=== PATIENT | male | born 1955 | race Caucasian/White ===

== ENCOUNTER 2019-08-31 04:00 | Observation (INO) | payer OTHER, SELFPAY ==
[2019-08-31] VITALS (11 sets, daily range): BP systolic 119–169; BP diastolic 70–92; PULSE 62–88; RESP 14–18; TEMP 35.9–36.7; O2SAT 95–100
--- NOTE | ~2019-08-31 | CT_ITS ---
EXAMINATION: CT abdomen pelvis w con INDICATION: Left lower quadrant pain TECHNIQUE: Computed tomographic images of the abdomen and pelvis were obtained after the administrati on of 100 cc of Omnipaque 350 intravenous contrast. The dose-length product (DLP) was 1230.75 mGy-cm. Automated exposure control and iterative reconstruction technique were employed. COMPARISON: 05/28/2014 FINDINGS: Minimal dependent atelectasis is present in the lung bases. The heart size is normal. There are changes of gastric bypass surgery. Punctate calcifications in otherwise normal appearing liver a nd spleen likely represent healed granulomatous disease. The pancreas and adrenal glands are unremark able. Stones or sludge are present in the nondistended gallbladder. Cysts of the kidneys measure up t o 6.1 cm on the right. There is a 4 mm stone in the left distal ureter which causes mild left hydrour eteronephrosis. There is a moderate amount of left perinephric fat stranding. A 4 mm nonobstructing s tone is present in the lower pole of the left kidney. There is calcified atherosclerosis of the aorta and many of the other arteries. No pathologically enlarged abdominal or pelvic lymph nodes are ident ified. There is no free intraperitoneal gas or evidence of bowel obstruction. The appendix is normal. Healed pelvic fractures are noted. There are changes of left total hip arthroplasty. IMPRESSION: 1. 4 mm stone of the left distal ureter causing mild left hydroureteronephrosis. Left perinephric fat stranding could reflect superimposed pyelonephritis. 2. Nonobstructing left nephrolithiasis. 3. Stones or sludge in the nondistended gallbladder. Reviewed, dictated and finalized at location A. ING MACHINE INSTALLER IMPRESSION: 1. 4 mm stone of the left distal ureter causing mild left hydroureteronephrosis . Left perinephric fat stranding could reflect superimposed pyelonephritis. 2. Nonobstructing left nephrolithiasis. 3. Stones or sludge in the nondistended gallbladder.
--- NOTE | ~2019-08-31 | XR_ITS ---
EXAMINATION: XR retrograde pyelo w/stent LT EXAM DATE: 08/31/2019 15:03 INDICATION: Left ureteral stone extraction. TECHNIQUE: Fluoroscopy used during XR retrograde pyelo w/stent LT performed by Dr. Cynthia Cantor MD. The DAP for this procedure was 0.4 mGym2. FINDINGS: Left ureter was cannulated, injected. Unremarkable collecting system. A left double-J uret eral stent was placed. Correlate with procedure note. IMPRESSION: Fluoroscopy used during XR retrograde pyelo w/stent LT. Reviewed, dictated and finalized at location A. RVISOR ROVING DEPARTMENT
--- NOTE | ~2019-08-31 | XR_ITS ---
EXAMINATION: XR abdomen/kub 1V INDICATION: Left flank pain, left distal ureteral stone TECHNIQUE: Supine views of the abdomen were obtained on 2 radiographs. COMPARISON: CT from today FINDINGS: Contrast from earlier CT examination opacifies the bladder and obscures visualization of th e known left distal ureteral stone. There is mild left hydroureteronephrosis, consistent with known s tone. The bowel gas pattern is normal. There is a moderate volume of colonic stool. Changes of left h ip arthroplasty are noted. Healed pelvic fractures are present. IMPRESSION: 1. Known left distal ureteral stone obscured by contrast in the urinary bladder. Mild left hydrourete ronephrosis. Reviewed, dictated and finalized at location A. MUTUEL TICKET CASHIER IMPRESSION: 1. Known left distal ureteral stone obscured by contrast in the urinary bladder . Mild left hydroureteronephrosis.
--- NOTE | 2019-08-31 04:17 | ED.ABDPAIN ---
HPI - Abdominal Pain General Chief Complaint: Urogenital-Male <Drew Blackwell MD - Last Filed: 09/02/19 23:10> Stated Complaint: abd, groin, testicle pain <Drew Blackwell MD - Last Filed: 09/02/19 23:10> Time Seen by Provider: 08/31/19 04:08 <Drew Blackwell MD - Last Filed: 09/02/19 23:10> History of Present Illness HPI narrative: Severe LLQ pain radiating into his scrotum since about 2200 last night. No associated symptoms. No exacerbating or alleviating factors. He has never had this before. He reports no difficulty with urinating since the pain started. He has severe chronic pain due to a previous back injury and recently had his pain regimen changed. <Drew Blackwell MD - Last Filed: 09/02/19 23:10> Related Data Home Medications: Home Medications Medication Instructions Recorded Confirmed Adult One Daily Multivitamin 1 mg PO DAILY 08/31/19 09/02/19 Glucagon Emergency Kit (human) 1 mg SUBCUT DIRECTED PRN 08/31/19 09/02/19 Humalog Jacques KwikPen U-100 See Protocol SUBCUT DAILY 08/31/19 09/02/19 Injectafer 750 mg IV [id number] 08/31/19 09/02/19 Januvia 100 mg PO DAILY 08/31/19 09/02/19 amitriptyline 25 mg BYMOUTH HS 08/31/19 09/02/19 apixaban 5 mg PO BID 08/31/19 09/02/19 ioxmeplhup-fijmtlocnbpvh-akll 1 cap PO Q6H PRN 08/31/19 09/02/19 calcium carbonate 600 mg PO TID 08/31/19 09/02/19 celecoxib 400 mg BYMOUTH DAILY 08/31/19 09/02/19 cyanocobalamin (vitamin B-12) 1,000 mcg PO DAILY 08/31/19 09/02/19 duloxetine 30 mg PO DAILY 08/31/19 09/02/19 duloxetine 60 mg PO DAILY 08/31/19 09/02/19 empagliflozin 25 mg PO DAILY 08/31/19 09/02/19 finasteride 5 mg PO DAILY 08/31/19 09/02/19 hydroxyzine HCl 25 mg PO TID 08/31/19 09/02/19 lorazepam 0.5 mg PO DIRECTED PRN 08/31/19 09/02/19 methocarbamol 500 mg PO TID 08/31/19 09/02/19 naltrexone 4.5 mg PO TID 08/31/19 09/02/19 pregabalin 150 mg PO TID 08/31/19 09/02/19 tamsulosin 0.4 mg PO QPM 08/31/19 09/02/19 trazodone 100 mg PO HS 08/31/19 09/02/19 <Drew Blackwell MD - Last Filed: 09/02/19 23:10> Allergies/Adverse Reactions: Allergies Allergy/AdvReac Type Severity Reaction Status Date / Time metformin Allergy Nausea and Verified 08/31/19 04:23 Vomiting adhesive tape AdvReac Blister Verified 08/31/19 04:22 silicone AdvReac Blister Verified 08/31/19 04:22 <Drew Blackwell MD - Last Filed: 09/02/19 23:10> Review of Systems Review of Systems: All systems reviewed & are unremarkable except as noted in HPI and below <Drew Blackwell MD - Last Filed: 09/02/19 23:10> Constitutional: Constitutional: Denies fever(s) <Drew Blackwell MD - Last Filed: 09/02/19 23:10> Eyes: Eyes: Denies change in vision <Drew Blackwell MD - Last Filed: 09/02/19 23:10> Cardiovascular: Cardiovascular: Denies chest pain <Drew Blackwell MD - Last Filed: 09/02/19 23:10> Respiratory: Respiratory: Denies dyspnea <Drew Blacwkell MD - Last Filed: 09/02/19 23:10> Gastrointestinal: Gastrointestinal: Reports abdominal pain, Denies diarrhea and Denies vomiting <Drew Blackwell MD - Last Filed: 09/02/19 23:10> Genitourinary: Genitourinary: Denies hematuria, Denies dysuria, Reports testicular pain and Denies urinary frequency <rDew Blackwell MD - Last Filed: 09/02/19 23:10> Musculoskeletal: Musculoskeletal: Reports back pain <Drew Blackwell MD - Last Filed: 09/02/19 23:10> Neurologic: Denies focal weakness <Drew Blackwell MD - Last Filed: 09/02/19 23:10> [facility] Past Medical History Medical History: Medical History (Updated 09/02/19 @ 23:07 by Brittany Sears, DO) Anxiety Chronic pain syndrome Depression Diabetes type 2, controlled On oral medications and sliding scale insulin DVT (deep venous thrombosis) Following major trauma and associated surgeries in 2013 and 2014 on chronic anticoagulation with Eliquis as a ?preventative? measure Essential hypertension No longer on antihyp
[2019-08-31] MEDS: SODIUM CHLORIDE 0.9% IV 1,000 ML 999 ML IV CONT (04:40)
[2019-08-31] MEDS: MORPHINE SULFATE 4 MG/ML INJ IV PUSH ×2 (04:40→05:00)
[2019-08-31 04:55] LABS: Basophils Percent Auto 0.3 % (0.2-1.2); Eosinophils Absolute Auto 0.1 K/mm3 (0-0.3); Eosinophils Percent Auto 0.4 % (0-4.4); Hematocrit 45.9 % (42.0-52.0); Hemoglobin 15.4 g/dL (14.0-18.0); Immature Granulocyte Absolute 0.03 K/mm3 (0.00-0.031); Immature Granulocyte Percent A 0.2 % (0-0.5); Lymphocytes Absolute Auto 1.63 K/mm3 (0.9-3.2); Lymphocytes Percent Auto 13.3 % (18.3-44.2); Mean Corpuscular HGB Conc 33.6 g/dl (32-36); Mean Corpuscular Hemoglobin 32.4 pg (26-34); Mean Corpuscular Volume 96.6 fl (80-100); Mean Platelet Volume 10.4 fl (7.4-10.4); Monocytes Absolute Auto 0.9 K/mm3 (0.1-0.6); Monocytes Percent Auto 7.5 % (2.6-8.5); Neutrophils Absolute Auto 9.6 K/mm3 (1.3-6.7); Neutrophils Percent Auto 78.3 % (45.5-73.1); Platelet Count Result 179 k/mm3 (150-375); Red Blood Count 4.75 M/mm3 (4.6-6.20); Red Cell Distribution Width 11.8 % (11.5-14.5); White Blood Count 12.3 K/mm3 (4.5-10.0)
[2019-08-31 05:16] LABS: Alanine Aminotransferase 34 U/L (4-50); Albumin Level 4.4 g/dL (3.5-5.1); Alkaline Phosphatase 111 U/L (38-126); Aspartate Amino Transferase 34 U/L (17-59); Bilirubin,Total 0.4 mg/dL (0.2-1.3); Blood Urea Nitrogen 17 mg/dL (9-20); Calcium 9.4 mg/dL (8.4-10.2); Carbon Dioxide 24 mmol/L (22-30); Chloride 100 mmol/L (98-107); Estimated CRCL calculation 88 ml/min; Estimated Glomerular Filt Rate > 60; Glucose 187 mg/dL (75-110); Lipase 110 U/L (23-300); Potassium 4.6 mmol/L (3.4-5.0); Sodium 135 mmol/L (137-145)
[2019-08-31] MEDS: KETOROLAC 30 MG/ML VIAL (*BKC) IV PUSH (05:52)
[2019-08-31 06:30] LABS: Blood Urea Nitrogen 22 mg/dL (8-26); Estimated CRCL calculation 80 ml/min; Estimated Glomerular Filt Rate > 60
[2019-08-31 07:07] LABS: Add Urine Microscopic? YES; Appearance Urine Clear (Clear); Bilirubin Urine Negative (Negative); Blood Urine 1+ (Negative); Color Urine Straw (Yellow); Glucose Urine UA 3+ mg/dL (Negative); Ketones Urine Negative (Negative); Leukocyte Esterase Ur Negative LEU/UL (Negative); Nitrate Urine Negative (Negative); Protein Urine Negative (Negative); Specific Grav Ur 1.022 (1.001-1.035); Urobilinogen Urine Negative mg/dL (<2.0); WBC Urine 0-3 /hpf
[2019-08-31] MEDS: HYDROMORPHONE HCL 1 MG/ML INJ 0.5 MG IV PUSH (10:00)
--- NOTE | 2019-08-31 10:17 | ADMGEN ---
This patient, Karlos Mohamud, was admitted to [facility] Surg Room 320-01. Patient/family oriented to hospital policies and general routines including ID bracelet, bed and alarms, visiting hours, pain management, procedures, bathroom and other care routines, personal items, smoking policy, room service/diet, and visiting hours. Valuables list has been completed. Information on how to activate the Rapid Response Team has been discussed. Patient/Family are encouraged to report perceived risks to care and to ask questions if they do not understand what they are told or what they should do.
[2019-08-31] MEDS: SODIUM CHLORIDE 0.9% IV 1,000 ML 125 ML IV CONT (12:21)
--- NOTE | 2019-08-31 12:46 | WPDURCON ---
Assessment and Plan Assessment and plan (1) Kidney stone: Code(s): N20.0 - Calculus of kidney Status: Acute Assessment and Plan: Will monitor yearly as an oupatient, no intervention at this time. (2) Ureteral stone: Code(s): N20.1 - Calculus of ureter Status: Acute Assessment and Plan: Keep NPO Plan to go to the OR this afternoon: Cystoscopy, left ureteroscopy with stone extraction, possible left stent placement, possible holmium laser, left retrograde pyelogram. Obtain consent. Will plan to discharge home afterward. Urology Consult Note HPI Date Seen: 08/31/19 Requesting Physician: Cynthia Cantor MD Primary Care Provider: UNKNOWN,DOCTOR Consult Narrative Reason for consult: Left distal uretral stone Narrative: Karlos Mohamud is a 63 year old male who presented to the ER early this morning for worsening left lower quadrant pain that was radiating into his left hemiscrotum. This was also accompanied by nausea and vomiting. He denies dysuria, hematuria, fever, chills or flank pain. The pain and vomiting started at 10pm last night. He has no history of kidney stones prior to this one. His CT scan confirms a 4mm left distal ureteral stone as well as a left non obstructive kidney stone. KUB does not visualize the left kidney stone. WBC is slightly elevated at 12,000, creatinine is stable at 1.00, he is afebrile and UA is negative other than some microhematuria. Review of Systems Cardiovascular: Cardiovascular: Denies chest pain Respiratory: Respiratory: Reports no additional respiratory complaints Gastrointestinal: Gastrointestinal: Reports abdominal pain Genitourinary: Genitourinary: Denies hematuria, Denies flank pain, Reports testicular pain and Denies urinary urgency [facility] Past Medical History Medical History Anxiety Chronic back pain Chronic pain Depression Diabetes type 2, controlled DVT (deep venous thrombosis) Fibromyalgia Hyperlipidemia Migraine Osteoarthritis Surgical History Surgical History Hx of spinal fusion Family History Family History Grandparent Diabetes mellitus Sibling Thyroid disease Social History Social History Smoking status: Former smoker Tobacco type: cigarettes Second hand tobacco smoke exposure: Yes Smoking end date: 08/24/83 Alcohol intake: never Substance use: never Substance use type: does not use Gender identity (if verbalized by the patient): Male Spiritual care concerns: No Agree to blood products: Yes Meds Home Medications and Allergies Home Medications Medication Instructions Recorded Confirmed Type amitriptyline 25 mg BYMOUTH HS 08/31/19 08/31/19 History apixaban 5 mg PO BID 08/31/19 08/31/19 History fyazwwsijh-ukadigkyfwgie-akgd 1 cap PO Q6H PRN 08/31/19 08/31/19 History calcium carbonate 600 mg PO TID 08/31/19 08/31/19 History celecoxib 400 mg BYMOUTH DAILY 08/31/19 08/31/19 History cyanocobalamin (vitamin B-12) 1,000 mcg PO DAILY 08/31/19 08/31/19 History duloxetine 30 mg PO DAILY 08/31/19 08/31/19 History duloxetine 60 mg PO DAILY 08/31/19 08/31/19 History empagliflozin 25 mg PO DAILY 08/31/19 08/31/19 History ferric carboxymaltose [Injectafer] 750 mg IV TID PRN 08/31/19 08/31/19 History finasteride 5 mg PO DAILY 08/31/19 08/31/19 History glucagon (human recombinant) 1 mg SUBCUT DIRECTED PRN 08/31/19 08/31/19 History [Glucagon Emergency Kit (human)] hydroxyzine HCl 25 mg PO TID 08/31/19 08/31/19 History insulin lispro [Humalog Jacques 30 unit SUBCUT DAILY 08/31/19 08/31/19 History KwikPen U-100] lorazepam 0.5 mg PO DIRECTED PRN 08/31/19 08/31/19 History methocarbamol 500 mg PO TID 08/31/19 08/31/19 History multivit with min-folic acid 1 mg PO DAILY 08/31/19 01
[2019-08-31 12:59] LABS: Glucose Point of Care 132 (65-105)
--- NOTE | 2019-08-31 13:51 | WPDANESEPPF ---
Anes - Initial Pre Proc Eval Procedure: Operation Date: 08/31/19 14:15 Proposed Procedures p Cystoscopy, Left Retrograde Pyelogram, Left Ureteroscopy, Left Stone Extraction, possible Left Stent Placement,(Left) - Cynthia Cantor MD s possible Holmium Laser Procedure - Cynthia Cantor MD Date/Time: 08/31/19 13:51 Surgeon: Cynthia Cantro MD Pre Op Diagnosis: left ureterolithiasis Patient Data Age: 63 Gender: M Height: 1.91 m Weight: 102 kg Last Vital Signs Temp 36.7 C 08/31/19 10:20 Pulse 62 08/31/19 10:20 Resp 16 08/31/19 10:20 BP 143/84 H 08/31/19 10:20 Pulse Ox 95 08/31/19 10:20 Allergies Allergy/AdvReac Type Severity Reaction Status Date / Time metformin Allergy Nausea and Verified 08/31/19 04:23 Vomiting adhesive tape AdvReac Blister Verified 08/31/19 04:22 silicone AdvReac Blister Verified 08/31/19 04:22 Home Medications Medication Instructions Recorded Confirmed Type amitriptyline 25 mg BYMOUTH HS 08/31/19 08/31/19 History apixaban 5 mg PO BID 08/31/19 08/31/19 History ksxwrwudug-drmsxavgwgfep-pbus 1 cap PO Q6H PRN 08/31/19 08/31/19 History calcium carbonate 600 mg PO TID 08/31/19 08/31/19 History celecoxib 400 mg BYMOUTH DAILY 08/31/19 08/31/19 History cyanocobalamin (vitamin B-12) 1,000 mcg PO DAILY 08/31/19 08/31/19 History duloxetine 30 mg PO DAILY 08/31/19 08/31/19 History duloxetine 60 mg PO DAILY 08/31/19 08/31/19 History empagliflozin 25 mg PO DAILY 08/31/19 08/31/19 History ferric carboxymaltose [Injectafer] 750 mg IV TID PRN 08/31/19 08/31/19 History finasteride 5 mg PO DAILY 08/31/19 08/31/19 History glucagon (human recombinant) 1 mg SUBCUT DIRECTED PRN 08/31/19 08/31/19 History [Glucagon Emergency Kit (human)] hydrocodone-acetaminophen 1 tablet PO Q4H PRN 5 Days #20 08/31/19 Rx tablet hydroxyzine HCl 25 mg PO TID 08/31/19 08/31/19 History insulin lispro [Humalog Jacques 30 unit SUBCUT DAILY 08/31/19 08/31/19 History KwikPen U-100] lorazepam 0.5 mg PO DIRECTED PRN 08/31/19 08/31/19 History methocarbamol 500 mg PO TID 08/31/19 08/31/19 History multivit with min-folic acid 1 mg PO DAILY 08/31/19 08/31/19 History [Adult One Daily Multivitamin] naltrexone 4.5 mg PO TID 08/31/19 08/31/19 History pregabalin 150 mg PO TID 08/31/19 08/31/19 History sitagliptin [Januvia] 100 mg PO DAILY 08/31/19 08/31/19 History tamsulosin 0.4 mg PO QPM 08/31/19 08/31/19 History trazodone 100 mg PO HS 08/31/19 08/31/19 History Laboratory Tests 08/31/19 08/31/19 08/31/19 04:37 04:38 05:15 WBC 12.3 K/mm3 H K/mm3 (4.5-10.0) RBC 4.75 M/mm3 M/mm3 (4.6-6.20) Hgb 15.4 g/dL g/dL (14.0-18.0) Hct 45.9 % % (42.0-52.0) MCV 96.6 fl fl (80-100) MCH 32.4 pg pg (26-34) MCHC 33.6 g/dl g/dl (32-36) RDW 11.8 % % (11.5-14.5) Plt Count 179 k/mm3 k/mm3 (150-375) MPV 10.4 fl fl (7.4-10.4) Immature Gran % (Auto) 0.2 % % (0-0.5) Neut % (Auto) 78.3 % H % (45.5-73.1) Lymph % (Auto) 13.3 % L % (18.3-44.2) [place] % (Auto) 7.5 % % (2.6-8.5) Eos % (Auto) 0.4 % % (0-4.4) Baso % (Auto) 0.3 % % (0.2-1.2) Lymph # (Auto) 1.63 K/mm3 K/mm3 (0.9-3.2) [place] # (Auto) 0.9 K/mm3 H K/mm3 (0.1-0.6) Eos # (Auto) 0.1 K/mm3 K/mm3 (0-0.3) Baso # (Auto) 0.0 K/mm3 K/mm3 (0.0-0.1) Abs Immat Gran (auto) 0.03 K/mm3 K/mm3 (0.00-0.031) Absolute Neuts (auto) 9.6 K/mm3 H K/mm3 (1.3-6.7) Absolute Nucleated RBC 0.0 K/mm3 K/mm3 (0.0-0.012) Nucleated RBC % 0.0 % % (0.0-0.2) Sodium 135 mmol/L L mmol/L (137-145) Potassium 4.6 mmol/L mmol/L (3.4-5.0) Chloride 100 mmol/L mmol/L (98-107) Carbon Dioxide 24 mmol/L mmol/L (22-30) BUN 17 mg/dL mg/dL 22 mg/dL mg/dL (9-20) (8-26) Creatinine 0.
[2019-08-31] MEDS: LACTATED RINGERS 1,000 ML 30 ML IV CONT (13:56)
[2019-08-31] MEDS: LIDOCAINE HCL 2% GEL UROJET 10 ML PKG MUCOUS MEM (14:50)
--- NOTE | 2019-08-31 15:12 | SUR.OPER ---
Patient recieved 2g of Anc by Alycia Lloyd CRNA at 1620
--- NOTE | 2019-08-31 19:01 | OP_ITS ---
DATE OF PROCEDURE: 08/31/2019 PREOPERATIVE DIAGNOSIS: Left nephrolithiasis. POSTOPERATIVE DIAGNOSIS: Left nephrolithiasis. PROCEDURE PERFORMED: 1. Cystoscopy. 2. Left ureteroscopy. 3. Laser lithotripsy. 4. Stone extraction. 5. Retrograde pyelogram. 6. Stent insertion. DESCRIPTION OF PROCEDURE: Informed consent was obtained. The patient was taken to the operating room and given preoperative IV antibiotics. He was induced anesthesia and placed in dorsal lithotomy position, prepped and draped in normal sterile fashion. We inserted a 22-Macedonian cystoscope through the urethra in the bladder. The patient had odrd-an-poywvkty bilobar prostatic hyperplasia. Inspection of bladder revealed it to be trabeculated, had bilaterally orthotopic ureteral orifices. There were no masses. We then cannulated the left ureteral orifice with the wire, we were able to advance a wire past the level of the stone, which showed there was obstruction of approximately 2 cm proximal to the ureterovesical junction. The patient did have hydroureteronephrosis down to the level of the stone. We were then able to dilate the distal ureter with an 8/10 coaxial dilator. We then advanced the semirigid ureteroscope into the distal ureter. We identified the stone approximately 5 cm in size. It was grasped with a basket; however, it was too large to be removed. We therefore lasered the stone into 3 smaller fragments, these were grasped and removed and sent as specimen. We then inspected the distal half of the ureter with the semi-rigid ureteroscope. There were no residual stones. On the patient's CT scan, he did have an additional stone in the left kidney. We therefore switched to the flexible ureteroscope. The flexible ureteroscope was advanced into the kidney.Retrograde pyelogram was performed, we then under fluoroscopic guidance, inspected each calyx. There was a 4 mm stone noted as well as punctate non-retrievable stones. The 4 mm stone was grasped with a Zero tip basket, it was then removed. At this point, all significant stones were removed. We therefore placed a 4.8-Macedonian variable length stent with a curl in the renal pelvis and curl in the bladder. The bladder was emptied. 10 mL of lidocaine was instilled. The patient was awakened and taken to the recovery room in stable condition. FLUIDS: Per Anesthesia. COMPLICATIONS: None. ESTIMATED BLOOD LOSS: Minimal. FOLLOWUP: The patient will follow up in the office in 1 week for ureteral stent removal. D I MT: Gilson JAMES
--- NOTE | 2019-09-01 08:27 | PCCCNOTE ---
Faxed DC summary to [facility] at [phone] on 09/01/2018 at [phone]
--- NOTE | 2019-09-22 01:51 | DS_ITS ---
DATE OF DISCHARGE: 08/31/2019 PREOPERATIVE DIAGNOSIS: Left nephrolithiasis. POSTOPERATIVE DIAGNOSIS: Left nephrolithiasis. PROCEDURES PERFORMED: Cystoscopy, left ureteroscopy, laser lithotripsy, stone extraction, retrograde pyelogram, stent insertion in the left ureter done by Dr. Cynthia Cantor on August 31, 2019. HOSPITAL COURSE: The patient tolerated the procedure well, was then transferred to the recovery in stable condition and to the floor for further observation. The patient was okay to be discharged home the same day on August [address] Cynthia Cantor. He was to return home. Resume his diet as tolerated. He was to resume all home medications taking previously including Colace, hydrocodone with acetaminophen, and oxybutynin as needed. The patient was to follow up 1 week later for stent removal in the office. Manuel I MT: Gilson
== END 2019-08-31 17:57 | disposition home or self-care (01) ==
LOC: ANHED 09:52 → ANH3MEDSUR 10:07
PROVIDERS: Admitting Provider Urology; Emergency Provider Emergency Medicine; Visit Provider Urology
PROC: (CPT 52352; principal; 2019-08-31 14:15)
PROC: (CPT 52356; 2019-08-31 14:15)
DX: N13.2 Hydronephrosis with renal and ureteral calculous obstruction (principal); N40.0 Benign prostatic hyperplasia without lower urinary tract symptoms; N32.89 Other specified disorders of bladder; E11.42 Type 2 diabetes mellitus with diabetic polyneuropathy; E78.5 Hyperlipidemia, unspecified; Z79.4 Long term (current) use of insulin; Z87.891 Personal history of nicotine dependence
CPT/HCPCS: 52356; 36415; 51701; 74018; 74177; 74420; 80053; 81001; 82365; 83690; 85025; 88300; 96361; 96374; 96375; 96376; 99285; A9270; C1887; C2617; G0378; G0379; J0690; J1170; J1885; J2250; J2270; J2405; J2704; J3010; J7030; J7120; Q9966; Q9967

== ENCOUNTER 2019-09-27 13:31 | Outpatient (CLI) | payer OTHER, SELFPAY ==
[2019-09-27 15:16] LABS: Hematocrit 45.8 % (42.0-52.0); Mean Corpuscular HGB Conc 32.8 g/dl (32-36); Mean Corpuscular Volume 97.7 fl (80-100); Mean Platelet Volume 10.1 fl (7.4-10.4); Platelet Count Result 175 k/mm3 (150-375); Red Blood Count 4.69 M/mm3 (4.6-6.20); Red Cell Distribution Width 12.2 % (11.5-14.5); White Blood Count 5.9 K/mm3 (4.5-10.0)
[2019-09-27 15:22] LABS: Blood Urea Nitrogen 8 mg/dL (9-20); Calcium 9.3 mg/dL (8.4-10.2); Carbon Dioxide 32 mmol/L (22-30); Chloride 99 mmol/L (98-107); Estimated Glomerular Filt Rate > 60; Glucose 138 mg/dL (75-110); Potassium 4.9 mmol/L (3.4-5.0); Sodium 140 mmol/L (137-145)
== END 2019-09-27 13:32 | disposition home or self-care (01) ==
PROVIDERS: Visit Provider Hospitalist
DX: E11.9 Type 2 diabetes mellitus without complications (principal); N20.0 Calculus of kidney
CPT/HCPCS: 36415; 80048; 85027

== ENCOUNTER 2019-10-04 10:19 | Outpatient (CLI) | payer OTHER, SELFPAY ==
--- NOTE | ~2019-10-04 | XR_ITS ---
EXAMINATION: XR abdomen/kub 1V EXAM DATE: 10/04/2019 10:36 INDICATION: Left ureteral stone. TECHNIQUE: Frontal projection(s) of the abdomen for interpretation. Comparison is made to prior exami nation from 08/31/2019. FINDINGS: There is expected amount of colonic stool and gas. No small bowel dilation, nonobstructiv e bowel gas pattern. There are no suspicious calcifications identified. There is no organomegaly suspected. The bones are unremarkable. Left hip replacement. Inguinal surgical clips. IMPRESSION: Unremarkable abdomen x-ray exam. Reviewed, dictated and finalized at location B. DINE RECOVERY OPERATOR
== END 2019-10-04 10:20 | disposition home or self-care (01) ==
LOC: ANHIMG 10:26
PROVIDERS: Visit Provider Urology
DX: N20.1 Calculus of ureter (principal)
CPT/HCPCS: 74018

== ENCOUNTER 2019-10-21 20:24 | Emergency (ER) | payer OTHER, SELFPAY ==
--- NOTE | ~2019-10-21 | CT_ITS ---
EXAMINATION: CT brain wo con DATE: 10/21/2019 20:50 INDICATION: Fall on chronic anticoagulation. TECHNIQUE: Computed tomography (CT) of the head was performed without intravenous contrast. Sagittal and coronal reconstructions were performed. The mA was adjusted according to patient size. Iterative reconstruction technique was employed. The dose-length product was 605.33 mGy-cm. COMPARISON: head CT dated 09/02/2019 FINDINGS: No fracture. No acute intracranial hemorrhage, acute infarction or abnormal extra axial fluid collect ion. Ventricles are normal and symmetric. No mass/mass effect. Opacification of the left sphenoid sin us with central calcification and peripheral thickened sclerotic [place] consistent with likely chronic fungal sinusitis. The orbits and mastoid air cells are normal. Intracranial calcified cerebral ather osclerosis is noted. IMPRESSION: 1. No fracture or acute intracranial process. 2. 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 Reviewed, dictated and finalized at location A. ICAL CARE PHYSICIAN
--- NOTE | ~2019-10-21 | XR_ITS ---
EXAMINATION: [id number]_CR DATE: 10/21/2019 21:01 INDICATION: Anterior right upper rib pain post fall TECHNIQUE: PA view of the chest and 3 views of the right ribs were obtained. COMPARISON: Chest radiograph dated 04/28/15 FINDINGS: Seen are several old rib fractures at the anterior right second, sixth and seventh right ribs. No acu te rib fractures identified. Plate and screw fixation along the cephalad aspect of the right clavicle , likely for old healed fracture with no residual deformity. The visualized plate and screw fixation for anterior spinal fusion in the mid to lower cervical spine. Streaky opacities at the left lung bas e and favor atelectasis over pneumonia. Right lung is clear. No pulmonary edema, pleural effusion or pneumothorax. Cardiac mediastinal silhouette is normal. Tortuous and atherosclerotic thoracic aorta. IMPRESSION: 1. No acute rib fractures. 2. Mild left basilar atelectasis. No other acute cardiopulmonary disease. Reviewed, dictated and finalized at location A. ENFORCEMENT INSTRUCTOR
--- NOTE | ~2019-10-21 | XR_ITS ---
EXAMINATION: XR knee RT min 4V DATE: 10/21/2019 21:00 INDICATION: Anterior right knee pain and abrasion post fall TECHNIQUE: Anteroposterior, 2 oblique and crosstable lateral views of the right knee were obtained COMPARISON: None. FINDINGS: Alignment is normal. No fracture. No joint effusion/layering lipohemarthrosis. Mild superficial infr apatellar soft tissue swelling. No radiopaque foreign bodies. IMPRESSION: 1. No right knee joint effusion or osseous abnormality. Reviewed, dictated and finalized at location A. LLENCE SPECIALIST
[2019-10-21 20:25] VITALS: BP 127/80; PULSE 72; RESP 16; TEMP 36.3; O2SAT 100
--- NOTE | 2019-10-21 20:39 | ED.FALL ---
HPI - Fall General Chief Complaint: Fall Stated Complaint: fall Time Seen by Provider: 10/21/19 20:35 Source: patient Mode of arrival: ambulatory Limitations: no limitations History of Present Illness HPI Narrative: The pt is a 63 y/o male who presents to the ED with c/o a recent fall that occurred today around 16:30. The pt states that he was walking on asphalt when his foot slipped, causing him to fall. The pt landed on his rt knee and chest but did not hit his head. He reports rt knee pain and rt rib cage pain, but denies ABD pain or LOC. The pt is on Eliquis and ASA 81 mg. He has a PMHx of DVT, [place], and kidney stones. His Tetanus shot is up to date and he is currently on Tramadol and Baclofen. complaint: fall Onset (ago): hour(s) (today around 16:30) Fall from: standing Loss of consciousness: none Location of injury: other (rt knee, rt rib cage) Associated symptoms (after fall): other (rt knee pain, rt rib cage pain) Related Data Home Medications Medication Instructions Recorded Confirmed Adult One Daily Multivitamin 1 mg PO DAILY 08/31/19 09/02/19 Glucagon Emergency Kit (human) 1 mg SUBCUT DIRECTED PRN 08/31/19 09/02/19 Humalog Jacques KwikPen U-100 See Protocol SUBCUT DAILY 08/31/19 09/02/19 Injectafer 750 mg IV [id number] 08/31/19 09/02/19 Januvia 100 mg PO DAILY 08/31/19 09/02/19 amitriptyline 25 mg BYMOUTH 08/31/19 09/02/19 spzmqeuowp-usdosolnmfzxf-wcfm 1 cap PO Q6H PRN 08/31/19 09/02/19 calcium carbonate 600 mg PO TID 08/31/19 09/02/19 cyanocobalamin (vitamin B-12) 1,000 mcg PO DAILY 08/31/19 09/02/19 duloxetine 30 mg PO DAILY 08/31/19 09/02/19 duloxetine 60 mg PO DAILY 08/31/19 09/02/19 empagliflozin 25 mg PO DAILY 08/31/19 09/02/19 finasteride 5 mg PO DAILY 08/31/19 09/02/19 hydroxyzine HCl 25 mg PO TID 08/31/19 09/02/19 lorazepam 0.5 mg PO DIRECTED PRN 08/31/19 09/02/19 methocarbamol 500 mg PO TID 08/31/19 09/02/19 naltrexone 4.5 mg PO TID 08/31/19 09/02/19 pregabalin 150 mg PO TID 08/31/19 09/02/19 tamsulosin 0.4 mg PO QPM 08/31/19 09/02/19 trazodone 100 mg PO HS 08/31/19 09/02/19 baclofen 10 mg PO TID 09/05/19 09/05/19 tramadol 100 mg PO Q6H 09/05/19 09/05/19 Allergies Allergy/AdvReac Type Severity Reaction Status Date / Time metformin Allergy Nausea and Verified 09/08/19 12:53 Vomiting adhesive tape AdvReac Blister Verified 09/08/19 12:53 silicone AdvReac Blister Verified 09/08/19 12:53 Review of Systems Review of Systems: All systems reviewed & are unremarkable except as noted in HPI and below Gastrointestinal: Gastrointestinal: Denies abdominal pain Musculoskeletal: Musculoskeletal: Reports other (rt knee pain, rt rib cage pain) Neurologic: Denies syncope PMFSH Past Medical History Medical History Anxiety Chronic pain syndrome Depression Diabetes type 2, controlled On oral medications and sliding scale insulin DVT (deep venous thrombosis) Following major trauma and associated surgeries in 2013 and 2014 on chronic anticoagulation with Eliquis as a ?preventative? measure Essential hypertension No longer on antihypertensives since weight loss surgery Fibromyalgia Hyperlipidemia Kidney stone Migraine Myocardial infarction Obstructive sleep apnea Resolved after gastric bypass in 2011 Osteoarthritis Peripheral neuropathy Surgical History Surgical History Fracture closed, clavicle, shaft Right ORIF of clavicle fracture following trauma after falling off a horse and 2013 H/O cervical spine surgery Approximately June 2019 at [place] H/O hernia repair History of extraction of renal calculus August 31, [address] Maria with lithotripsy and stent placement History of gastric bypass 2011 the [facility] weight pre surgery was 300 lb, history of obstructive sleep apnea that is now resolved after weight loss History of left hip replacement 2006 Multiple pelvic f
== END 2019-10-21 21:40 | disposition home or self-care (01) ==
PROVIDERS: Emergency Provider Emergency Medicine
DX: S20.211A Contusion of right front wall of thorax, initial encounter (principal); S80.01XA Contusion of right knee, initial encounter; S80.211A Abrasion, right knee, initial encounter; E11.42 Type 2 diabetes mellitus with diabetic polyneuropathy; Z79.84 Long term (current) use of oral hypoglycemic drugs; F41.9 Anxiety disorder, unspecified; F32.9 Major depressive disorder, single episode, unspecified; Z86.718 Personal history of other venous thrombosis and embolism; Z79.01 Long term (current) use of anticoagulants; M79.7 Fibromyalgia; E78.5 Hyperlipidemia, unspecified; I25.2 Old myocardial infarction; G47.33 Obstructive sleep apnea (adult) (pediatric); Z96.642 Presence of left artificial hip joint; Z98.84 Bariatric surgery status; Z87.442 Personal history of urinary calculi; Z87.891 Personal history of nicotine dependence; W01.0XXA Fall on same level from slipping, tripping and stumbling without subsequent striking against object, initial encounter
CPT/HCPCS: 70450; 71101; 73564; 99284

== ENCOUNTER 2021-06-29 17:56 | Observation (INO) | payer MEDICARE, OTHER, SELFPAY ==
[2021-06-29] VITALS (7 sets, daily range): BP systolic 116–133; BP diastolic 65–80; PULSE 80–82; RESP 16–18; TEMP 35.8–36.7; O2SAT 91–100; BMI 24.8
--- NOTE | ~2021-06-29 | XR_ITS ---
XR hip LT 2V w AP pelvis DATE: 06/29/2021 18:37 INDICATION: Fall. Left hip pain and limited range of motion. Unable to bear weight. TECHNIQUE: AP pelvis. AP and lateral views of left hip COMPARISON: 05/09/2015 AP pelvis and bilateral hips FINDINGS: There is a likely acute linear nondisplaced fracture of the intertrochanteric area of the l eft proximal femur. Status post left total hip arthroplasty. Bilateral old healed hip fractures. No recent pelvic fracture is detected. The pubic symphysis and sacroiliac joints are intact. IMPRESSION: Probable acute linear intertrochanteric nondisplaced fracture of proximal left femur Left total hip arthroplasty Old healed bilateral pelvic fractures. Reviewed, dictated and finalized at location A. IMPRESSION: Probable acute linear intertrochanteric nondisplaced fracture of pr oximal left femur Left total hip arthroplasty Old healed bilateral pelvic fractures.
--- NOTE | ~2021-06-29 | CT_ITS ---
EXAMINATION: CT brain wo con DATE: 06/29/2021 19:27 INDICATION: Fall. Head injury. TECHNIQUE: Computed tomography (CT) of the head was performed without intravenous contrast. The mA wa s adjusted according to patient size. Iterative reconstruction technique was employed. Exam dose: 60 5.33 mGy-cm total exam DLP. COMPARISON: 10/21/2019 CT brain FINDINGS: Vertebral, basilar and bilateral carotid siphon and supraclinoid internal carotid artery ca lcifications. There is nonspecific diminished attenuation of cerebral white matter, which may be due to chronic sma ll vessel ischemic changes. Normal ventricular size. No intracranial mass lesion or hemorrhage or cerebrovascular accident is detected. No midline shift o r mass effect. No subdural or epidural hematoma. No fracture or bone destruction of the cranial vault There is complete opacification of the left sphenoid sinus with some calcification of the contents. W ith thickening of the wall of the left sphenoid sinus indicating chronicity. The paranasal sinuses an d mastoid air cells are otherwise normally developed and aerated. IMPRESSION: Cerebral atherosclerosis and chronic small vessel ischemic changes of the cerebral white matter Chronic opacification of left sphenoid sinus No skull fracture or acute intracranial finding Reviewed, dictated and finalized at Location A. Reviewed, dictated and finalized at location A.
--- NOTE | ~2021-06-29 | XR_ITS ---
XR chest 1V portable DATE: 06/29/2021 19:03 INDICATION: Dizziness. Fall. Hand surgery yesterday. History of myocardial infarction. TECHNIQUE: Portable AP views on 06/29/2021 at 1857 hours COMPARISON: 04/28/2015 PA and lateral chest FINDINGS: Normal heart size. Aortic arch calcification and minimal aortic tortuosity. No hilar or med iastinal enlargement. No pulmonary infiltrate or consolidation. There is minimal discoid atelectasis or scarring at the lef t lung base. No pleural effusion or pulmonary vascular congestion or pneumothorax. Status post lower anterior cervical spine surgical fusion. Diffuse osteopenia. IMPRESSION: Minimal discoid atelectasis or scarring at the left lung base; otherwise no active cardia c pulmonary disease Reviewed, dictated and finalized at location A. IMPRESSION: Minimal discoid atelectasis or scarring at the left lung base; othe rwise no active cardiac pulmonary disease
--- NOTE | 2021-06-29 18:47 | ECG_ITS ---
Measurements Intervals [place] Rate: 78 P: 66 AR: 188 QRS: -13 QRSD: 88 T: 35 QT: 372 QTc: 424 Interpretive Statements SINUS RHYTHM LOW QRS VOLTAGE IN PRECORDIAL LEADS BORDERLINE R WAVE PROGRESSION, ANTERIOR LEADS INFERIOR INFARCT, AGE INDETERMINATE ABNORMAL ECG Electronically Signed On 06-29-2021 20:05:12 CDT by Daryl Hrenandez D.O.
--- NOTE | 2021-06-29 19:11 | ED.FALL ---
HPI - Fall General Chief Complaint: Fall Stated Complaint: fall, hip pain Time Seen by Provider: 06/29/21 19:06 Source: RN notes reviewed History of Present Illness HPI Narrative: Patient presents emergency department from home for left hip pain. Patient states that he was at home today and he was trying to lift his [place] dog he states he is he is lifting her he began to get a slightly dizzy and the rug from under him slipped out from under him causing him to fall back and struck his exercise bike and then fall to the ground since that time he had pain in his left hip and has been unable to place any pressure on his left hip states he did strike his head but denies any loss of consciousness states he is on apixaban. He denies any dizziness at this time denies any chest pain or shortness of breath Related Data Home Medications Medication Instructions Recorded Confirmed Adult One Daily Multivitamin 1 mg PO DAILY 08/31/19 09/02/19 Glucagon Emergency Kit (human) 1 mg SUBCUT DIRECTED PRN 08/31/19 09/02/19 Humalog Jacques KwrossiPen U-100 See Protocol SUBCUT DAILY 08/31/19 09/02/19 Injectafer 750 mg IV [id number] 08/31/19 09/02/19 Januvia 100 mg PO DAILY 08/31/19 09/02/19 amitriptyline 25 mg BYMOUTH HS 08/31/19 09/02/19 ocjuzanwoa-ggprtmpymmigs-wxsb 1 cap PO Q6H PRN 08/31/19 09/02/19 calcium carbonate 600 mg PO TID 08/31/19 09/02/19 cyanocobalamin (vitamin B-12) 1,000 mcg PO DAILY 08/31/19 09/02/19 duloxetine 30 mg PO DAILY 08/31/19 09/02/19 duloxetine 60 mg PO DAILY 08/31/19 09/02/19 empagliflozin 25 mg PO DAILY 08/31/19 09/02/19 finasteride 5 mg PO DAILY 08/31/19 09/02/19 hydroxyzine HCl 25 mg PO TID 08/31/19 09/02/19 lorazepam 0.5 mg PO DIRECTED PRN 08/31/19 09/02/19 methocarbamol 500 mg PO TID 08/31/19 09/02/19 naltrexone 4.5 mg PO TID 08/31/19 09/02/19 pregabalin 150 mg PO TID 08/31/19 09/02/19 tamsulosin 0.4 mg PO QPM 08/31/19 09/02/19 trazodone 100 mg PO HS 08/31/19 09/02/19 baclofen 10 mg PO TID 09/05/19 09/05/19 tramadol 100 mg PO Q6H 09/05/19 09/05/19 Allergies Allergy/AdvReac Type Severity Reaction Status Date / Time adhesive tape AdvReac Blister Verified 09/08/19 12:53 metformin AdvReac Nausea and Verified 06/29/21 19:24 Vomiting silicone AdvReac Blister Verified 09/08/19 12:53 Review of Systems Review of Systems: Gen.: Denies fevers or chills Eyes: Denies eye pain or visual change ENT: Denies congestion Respiratory: Denies shortness of breath or cough CV: Denies chest pain or palpitations GI: Denies abdominal pain nausea, emesis or diarrhea Musculoskeletal: D see HPI Neuro: Denies numbness, tingling, weakness or focal weakness reports intermittent dizziness with lifting the dog but none since that time Skin: Denies rash Except as documented, all other systems reviewed and negative [facility] Past Medical History Medical History (Updated 06/29/21 @ 21:00 by Dimitry Ivan DO) Anxiety Chronic pain syndrome Depression Diabetes type 2, controlled On oral medications and sliding scale insulin DVT (deep venous thrombosis) Following major trauma and associated surgeries in 2013 and 2014 on chronic anticoagulation with Eliquis as a ?preventative? measure Essential hypertension No longer on antihypertensives since weight loss surgery Fibromyalgia Hyperlipidemia Kidney stone Migraine Myocardial infarction Obstructive sleep apnea Resolved after gastric bypass in 2011 Osteoarthritis Peripheral neuropathy Surgical History Surgical History Fracture closed, clavicle, shaft Right ORIF of clavicle fracture following trauma after falling off a horse and 2013 H/O cervical spine surgery Approximately June 2019 at [place] H/O hernia repair History of extraction of renal calculus August 31, [address] Maria with lithotripsy and stent placement History of gastric bypass 2011 the [facility] weight pre surgery was 300 lb, history of obstruc
--- NOTE | 2021-06-29 19:15 | PC.NURSE ---
Report received from SIRI Duran. Assumed care of patient at this time.
[2021-06-29 19:18] LABS: Basophils Percent Auto 0.2 % (0.2-1.2); Eosinophils Percent Auto 0.1 % (0-4.4); Hemoglobin 13.4 g/dL (14.0-18.0); Immature Granulocyte Absolute 0.02 K/mm3 (0.00-0.031); Immature Granulocyte Percent A 0.2 % (0-0.5); Immature Platelet Fraction Pct 3.6 % (0.9-11.2); Lymphocytes Absolute Auto 1.26 K/mm3 (0.9-3.2); Lymphocytes Percent Auto 13.6 % (18.3-44.2); Mean Corpuscular HGB Conc 33.5 g/dl (32-36); Mean Corpuscular Hemoglobin 32.5 pg (26-34); Mean Corpuscular Volume 97.1 fl (80-100); Mean Platelet Volume 9.7 fl (7.4-10.4); Monocytes Absolute Auto 0.6 K/mm3 (0.1-0.6); Monocytes Percent Auto 6.8 % (2.6-8.5); Neutrophils Absolute Auto 7.4 K/mm3 (1.3-6.7); Neutrophils Percent Auto 79.1 % (45.5-73.1); Platelet Count Result 160 k/mm3 (150-375); Red Blood Count 4.12 M/mm3 (4.6-6.20); Red Cell Distribution Width 13.6 % (11.5-14.5); White Blood Count 9.3 K/mm3 (4.5-10.0)
[2021-06-29 19:27] LABS: INR 1.2; Partial Thromboplastin Time 32.6 SECONDS (22.3-36.8); Prothrombin Time 14.9 Seconds (11.1-14.7)
[2021-06-29 19:31] LABS: Alanine Aminotransferase 39 U/L (4-50); Alkaline Phosphatase 74 U/L (38-126); Anion Gap 6 mmol/L (8-16); Aspartate Amino Transferase 36 U/L (17-59); Bilirubin,Total 0.8 mg/dL (0.2-1.3); Blood Urea Nitrogen 22 mg/dL (9-20); Carbon Dioxide 29 mmol/L (22-30); Chloride 102 mmol/L (98-107); Estimated CRCL calculation 96 ml/min; Estimated Glomerular Filt Rate > 60; Glucose 146 mg/dL (65-110); Potassium 4.5 mmol/L (3.4-5.0); Sodium 137 mmol/L (137-145)
[2021-06-29] MEDS: MORPHINE SULFATE (*CRX) 2 MG/ML INJ IV PUSH ×2 (19:40→20:51)
[2021-06-29 20:15] LABS: Add Urine Microscopic? YES; Appearance Urine Cloudy (Clear); Bilirubin Urine Negative (Negative); Blood Urine Negative (Negative); Color Urine Yellow (Yellow); Glucose Urine UA 3+ mg/dL (Negative); Ketones Urine Negative (Negative); Leukocyte Esterase Ur Negative LEU/UL (Negative); Nitrate Urine Negative (Negative); Protein Urine Negative (Negative); RBC Urine 0-2 /hpf (0-2); Specific Grav Ur 1.025 (1.001-1.035); Squamous Epithelial Cell Urine Rare /hpf (Few); Urobilinogen Urine Negative mg/dL (<2.0); WBC Urine 0-3 /hpf
--- NOTE | 2021-06-29 21:42 | ADMGEN ---
This patient, Karlos Mohamud Jr., was admitted to Medical Room 259-01. Patient/family oriented to hospital policies and general routines including ID bracelet, bed and alarms, visiting hours, pain management, procedures, bathroom and other care routines, personal items, smoking policy, room service/diet, and visiting hours. Information on how to activate the Rapid Response Team has been discussed. Patient/Family are encouraged to report perceived risks to care and to ask questions if they do not understand what they are told or what they should do.
[2021-06-30] MEDS: MORPHINE SULFATE (*CRX) 2 MG/ML INJ IV PUSH ×5 (00:07→20:51)
--- NOTE | 2021-06-30 03:20 | PC.NURSE ---
Daylight Savings Time For Daylight Savings Time Ending in the Fall - Clocks are moved back. For Daylight Savings Time Beginning in the Spring - Clocks are moved ahead. For [facility], the time of change occurs at 0200 hrs. Time is taken from the locomotive observer. This entry on the patient's chart recognizes the change in time reflected during documentation. Example: 2 entries for vital signs may be charted for 0200 hrs.
[2021-06-30] MEDS: HYDROcodone/acetaminophen (*CRX) 5-325 MG TABLET 1 TAB PO ×2 (04:12→10:09)
--- NOTE | 2021-06-30 04:42 | PM.IMHP ---
H&P: HPI History of Present Illness Date/Time: 06/30/21 04:42 Chief Complaint: Fall with left hip pain Narrative: 65-year-old male with a past medical history mild systolic heart failure, coronary artery disease, hypertension, diabetes and chronic pain who presented to the ER after falling and injuring his left hip. The patient reports that he was trying to lift up his elderly [place] back and to help him stand when he stepped on the dog bed behind him and it moved. The dog bed slid from under his feet any could not keep his balance. He reports that he really was not dizzy but just could not recovers equilibrium and fell. He reports he does have somewhat frequent episodes of balance checks and dizziness. But today was more due to his foot placement. He fell backward striking his head on his recumbent bike but did not lose consciousness. He had InStent severe pain in his hip and was unable to move it at all. He was unable to get up or bear any weight. He reports that his pain has improved after 1 dose of [place] in 2 doses of morphine. He did not receive his chronic home pain medications last evening which has compounded his pain. He reports that his pain is now manageable and he is able to lift his leg from the bed. He did have his hip replaced at [place] in 2001. He reports that he has some abrasions to his knee and left ankle following the fall. He is no acute bleeding. He recently had skin lesions removed from his nose and cheek. He also in recent months had full dental extractions and now wears dentures. Review of Systems Review of Systems: 10 systems were reviewed with pertinent positives and negatives per HPI. Except as documented in the HPI, all other systems were reviewed and are negative. [facility], [facility] Past Medical History Medical History (Updated 06/30/21 @ 04:50 by Brittany Sears DO) Anxiety CAD (coronary artery disease) Chronic pain syndrome Depression Diabetes type 2, controlled On oral medications and sliding scale insulin DVT (deep venous thrombosis) Following major trauma and associated surgeries in 2013 and 2014 on chronic anticoagulation with Eliquis as a ?preventative? measure Essential hypertension No longer on antihypertensives since weight loss surgery Fibromyalgia Hyperlipidemia Ischemic cardiomyopathy With mildly decreased global left ventricular systolic function with EF of 40-50% on cardiac catheterization 08/2019 Kidney stone Migraine Myocardial infarction Obstructive sleep apnea Resolved after gastric bypass in 2011 Osteoarthritis Peripheral neuropathy Surgical History Surgical History (Updated 06/30/21 @ 04:50 by Brittany Sears DO) Fracture closed, clavicle, shaft Right ORIF of clavicle fracture following trauma after falling off a horse and 2013 H/O cervical spine surgery Approximately June 2019 at [place] H/O hernia repair History of cardiac catheterization (08/2019) Calcified coronary arteries with [id number] 3 vessel disease (lad with proximal area stenosis representing 50-60% stenosis, 50-60% stenosis of the mid to distal circumflex, RCA moderate to large caliber vessel with stenosis the 2nd portion representing 40 50% stenosis. History of extraction of renal calculus August 31, [address] Maria with lithotripsy and stent placement History of gastric bypass 2011 the [facility] weight pre surgery was 300 lb, history of obstructive sleep apnea that is now resolved after weight loss History of left hip replacement 2005 Multiple pelvic fractures 2014 due to trauma after falling off a horse. Requiring surgical repair Family History Family History Grandparent Diabetes mellitus Sibling Thyroid disease Social History Social History (Updated 06/30/21 @ 07:13 by Brittany Sears DO) Social History: The patient lives in [place] with his . They have approximately 20 horses, 3 pigs, a par
[2021-06-30 06:00] VITALS: BP 122/63; PULSE 70; RESP 18; TEMP 36.3; O2SAT 93
--- NOTE | 2021-06-30 07:37 | PM.CNOR ---
Assessment and Plan Assessment and plan (1) Periprosthetic intertrochanteric fracture of femur: Qualifiers: Encounter type: initial encounter Qualified Code(s): M97.8XXA - Periprosthetic fracture around other internal prosthetic joint, initial encounter; Z96.649 - Presence of unspecified artificial hip joint Code(s): M97.8XXA - Periprosthetic fracture around other internal prosthetic joint, initial encounter; Z96.649 - Presence of unspecified artificial hip joint Status: Acute Assessment and Plan: 65-year-old male with a nondisplaced type A periprosthetic femur fracture left hip. His hip history is somewhat involved from early on but he has been doing quite well with this. At this juncture, this can be treated nonsurgically. He is currently being actively managed at [place] for pain management. I recommended due to the nature his history that he follow up there. Will likely need x-ray in about one week to monitor this. If he is unable to do so, I can certainly see him at the office and arrange for this. For him, pain management is going to be paramount. Will need a platform for his right arm since he just had surgery removing a skin cancer and is right-hand is quite sore. He can be touchdown weight-bearing for balance with respect to this. Thank you for the consultation. I will follow while he is here in the hospital. History of Present Illness HPI Consult date: 06/30/21 Chief complaint: left intertrochanteric hip fracture Narrative: This document created with [id number] technology and is subject to water quality assistant irregularities. 65-year-old male who fell yesterday while trying to lift his large dog. He landed on his left side. He drove cell to the hospital and use the walker to get in to the emergency room. He was found to have had a left hip peritrochanteric fracture. He was admitted for further evaluation and management. History of chronic pain in his currently in pain management [place]. Regarding his left hip, had an infection back in 2005 which was treated with what sounds like bone resection and then a delayed reconstruction by Dr. Stefan traore at [place]. In 2014 he had an equestrian accident when a horse fell on him suffering pelvic fracture treated with external fixation. Regarding his hip, he has not really had any difficulties with this. The chronic pain issue is from the last horse injury in 2014. Review of Systems Constitutional: Constitutional: Reports no additional constitutional complaints Eyes: Eyes: Reports no additional eye complaints ENT: Reports system reviewed and no additional complaints, except as documented Cardiovascular: Cardiovascular: Denies chest pain at rest Respiratory: Respiratory: Reports no additional respiratory complaints Gastrointestinal: Gastrointestinal: Reports no additional gastrointestinal complaints Musculoskeletal: Musculoskeletal: Reports as per HPI Integumentary/Breasts: Skin/Breast: Reports system reviewed and no additional complaints, except as docu Neurologic: Reports as per HPI [facility] Past Medical History Medical History (Updated 06/30/21 @ 07:44 by Rufino Erazo MD) Anxiety CAD (coronary artery disease) Chronic pain syndrome Depression Diabetes type 2, controlled On oral medications and sliding scale insulin DVT (deep venous thrombosis) Following major trauma and associated surgeries in 2013 and 2014 on chronic anticoagulation with Eliquis as a ?preventative? measure Essential hypertension No longer on antihypertensives since weight loss surgery Fibromyalgia Hyperlipidemia Ischemic cardiomyopathy With mildly decreased global left ventricular systolic function with EF of 40-50% on cardiac catheterization 08/2019 Kidney stone Migraine Myocardial infarction Obstructive sleep apnea Resolved after gastric bypass in 2011 Osteoarthritis Peripheral neuropathy Periprosthetic intertrochanteric fracture of femur nondisplaced type A
[2021-06-30 08:09] LABS: Glucose Point of Care 123 mg/dl (65-105)
[2021-06-30] MEDS: ASPIRIN 81 MG ENTERIC TABLET PO (10:03)
[2021-06-30] MEDS: BACLOFEN 10 MG TABLET PO ×3 (10:03→18:02)
[2021-06-30] MEDS: APIXABAN 5 MG TABLET PO ×2 (10:03→20:47)
[2021-06-30] MEDS: ATORVASTATIN 40 MG TABLET PO (10:03)
[2021-06-30 10:04] VITALS: PULSE 72
[2021-06-30] MEDS: DULoxetine HCL 30 MG CAPSULE.DR PO (10:04)
[2021-06-30] MEDS: DULoxetine HCL 60 MG CAPSULE.DR PO (10:04)
[2021-06-30] MEDS: CYANOCOBALAMIN 500 MCG TABLET PO (10:04)
[2021-06-30] MEDS: METOPROLOL TARTRATE 25 MG TABLET PO ×2 (10:04→20:47)
[2021-06-30] MEDS: methocarbamoL 500 MG TABLET PO ×3 (10:04→18:02)
[2021-06-30] MEDS: CALCIUM CARBONATE (OSCAL) 500 MG TABLET PO ×3 (10:04→18:02)
[2021-06-30] MEDS: PREGABALIN (*CRX) 50 MG CAPSULE 200 MG PO ×3 (10:05→18:02)
[2021-06-30 11:52] LABS: Glucose Point of Care 190 mg/dl (65-105)
--- NOTE | 2021-06-30 12:30 | PM.IMPN ---
Progress Note: A&P Assessment and Plan (1) Periprosthetic intertrochanteric fracture of femur: Qualifiers: Encounter type: initial encounter Qualified Code(s): M97.8XXA - Periprosthetic fracture around other internal prosthetic joint, initial encounter; Z96.649 - Presence of unspecified artificial hip joint Code(s): M97.8XXA - Periprosthetic fracture around other internal prosthetic joint, initial encounter; Z96.649 - Presence of unspecified artificial hip joint Status: Acute Assessment and Plan: Pt had a mechanical fall which resulted in a linear intertrochanteric nondisplaced fracture of the proximal left femur -Orthopedic surgery has seen the pt and set up PT/OT and has no plans for sx. -hx of chronic pain syndrome his tramadol was held and norco started. Will continue Lyrica, amitriptyline, baclofen, and duloxetine. -will see how he does with PT and OT and hopefully he will be able to discharge home tomorrow. He lives on the main floor with no steps to go inside. He lives with his spouse who will be able to help if needed. He has a bathroom and kitchen area on the floor he lives on. (2) Diabetes type 2, controlled: Qualifiers: Diabetes mellitus penitentiary insulin use: without penitentiary use Diabetes mellitus complication status: with unspecified complications Qualified Code(s): E11.8 - Type 2 diabetes mellitus with unspecified complications Code(s): E11.9 - Type 2 diabetes mellitus without complications Status: Acute Assessment and Plan: last glucose 190 -Continue home Jardiance and SSI (3) Chronic pain syndrome: Code(s): G89.4 - Chronic pain syndrome Status: Acute Assessment and Plan: as above (4) CAD (coronary artery disease): Qualifiers: Coronary Disease-Associated Artery/Lesion type: [place] artery [place] vs. transplanted heart: [place] heart Associated angina: without angina Qualified Code(s): I25.10 - Atherosclerotic heart disease of [place] coronary artery without angina pectoris Code(s): I25.10 - Atherosclerotic heart disease of [place] coronary artery without angina pectoris Status: Acute Assessment and Plan: Pt has a hx of CAD with systolic HF on last cath. He appears to be euvolemic with no cp, sob, or leg swelling. -Continue metoprolol, aspirin, and atorvastatin. Additional Plan on eliquis due to hx of DVT. head CT negative after fall Time Spent With Patient Time with patient: 25 - 35 minutes Subjective Date/time seen: 06/30/21 12:30 Interval history: Pt is a 65 y/o male here for hip fracture. Patient was seen today and states his pain is pretty well controlled. He is currently sitting in the chair with the pain a 6/10. Earlier it was up to 8/10 when he was moving but overall feels okay. He has chronic neuropathy that causes his feet to be slightly numb and tingly but no new paresthesias or numbness noted. He has no neck pain, headache, or weakness. Pt denies nausea, vomiting, fevers, chills, constipation, diarrhea, chest pain, sob, or abdominal pain. Review of Systems Review of Systems: All systems reviewed & are unremarkable except as noted in HPI and below Exam Narrative: General: Well developed well nourished patient in NAD HEENT: normocephalic Neck: supple Neuro: Alert and oriented x4 CV:RRR Resp:CTA Abd: Soft, non distended. No pain to palpation. Positive bowel sounds Extremities: No swelling or erythema. Pain to the left hip on palpation. Objective Data Vital Signs Vital Signs: Vital Signs - 24 hr 06/29/21 18:00 06/29/21 19:44 06/29/21 19:45 Temperature 96.4 F L Pulse Rate 82 Respiratory Rate 18 Blood Pressure 129/65 123/77 Pulse Oximetry 100 93 91 06/29/21 20:17 06/29/21 20:31 06/29/21 21:19 Temperature 98.1 F Pulse Rate 80 Respiratory Rate 17 Blood Pressure 119/68 116/80 Pulse Oximetry 92 91 93 06/29/21 21:55
[2021-06-30 14:00] VITALS: BP 106/78; PULSE 73; RESP 16; TEMP 35.6; O2SAT 97
[2021-06-30 16:37] LABS: Glucose Point of Care 120 mg/dl (65-105)
[2021-06-30] MEDS: TAMSULOSIN HCL 0.4 MG CAPSULE PO (18:02)
[2021-06-30 20:05] VITALS: BP 106/57; PULSE 77; RESP 18; TEMP 35.8; O2SAT 93
[2021-06-30 20:47] VITALS: PULSE 73
[2021-06-30] MEDS: AMITRIPTYLINE HCL 25 MG TABLET BY MOUTH (20:47)
[2021-06-30 22:19] LABS: Glucose Point of Care 165 mg/dl (65-105)
[2021-06-30 23:17] VITALS: O2SAT 93
[2021-07-01] MEDS: HYDROcodone/acetaminophen (*CRX) 5-325 MG TABLET 1 TAB PO ×2 (01:27→11:00)
[2021-07-01] MEDS: traZODone HCL 50 MG TABLET 100 MG PO (01:27)
[2021-07-01 03:35] VITALS: BP 101/51; PULSE 64; RESP 18; TEMP 36.6; O2SAT 96
[2021-07-01 05:49] LABS: Hematocrit 38.8 % (42.0-52.0); Hemoglobin 12.8 g/dL (14.0-18.0); Mean Corpuscular Hemoglobin 31.8 pg (26-34); Mean Corpuscular Volume 96.5 fl (80-100); Platelet Count Result 143 k/mm3 (150-375); Red Blood Count 4.02 M/mm3 (4.6-6.20); Red Cell Distribution Width 13.4 % (11.5-14.5); White Blood Count 5.3 K/mm3 (4.5-10.0)
[2021-07-01 06:25] LABS: Anion Gap 6 mmol/L (8-16); Blood Urea Nitrogen 21 mg/dL (9-20); Calcium 8.7 mg/dL (8.4-10.2); Carbon Dioxide 31 mmol/L (22-30); Chloride 103 mmol/L (98-107); Estimated CRCL calculation 108 ml/min; Estimated Glomerular Filt Rate > 60; Glucose 125 mg/dL (65-110); Potassium 4.1 mmol/L (3.4-5.0); Sodium 140 mmol/L (137-145)
[2021-07-01 07:41] LABS: Glucose Point of Care 139 mg/dl (65-105)
[2021-07-01] MEDS: MORPHINE SULFATE (*CRX) 2 MG/ML INJ IV PUSH (07:47)
[2021-07-01 08:51] VITALS: PULSE 83
[2021-07-01] MEDS: ATORVASTATIN 40 MG TABLET PO (08:51)
[2021-07-01] MEDS: DULoxetine HCL 30 MG CAPSULE.DR PO (08:51)
[2021-07-01] MEDS: BACLOFEN 10 MG TABLET PO ×2 (08:51→12:31)
[2021-07-01] MEDS: CALCIUM CARBONATE (OSCAL) 500 MG TABLET PO ×2 (08:51→12:31)
[2021-07-01] MEDS: METOPROLOL TARTRATE 25 MG TABLET PO (08:51)
[2021-07-01] MEDS: CYANOCOBALAMIN 500 MCG TABLET PO (08:51)
[2021-07-01] MEDS: APIXABAN 5 MG TABLET PO (08:51)
[2021-07-01] MEDS: ASPIRIN 81 MG ENTERIC TABLET PO (08:51)
[2021-07-01] MEDS: methocarbamoL 500 MG TABLET PO ×2 (08:52→12:31)
[2021-07-01] MEDS: DULoxetine HCL 60 MG CAPSULE.DR PO (08:52)
[2021-07-01] MEDS: PREGABALIN (*CRX) 50 MG CAPSULE 200 MG PO ×2 (08:58→12:30)
--- NOTE | 2021-07-01 09:05 | PM.DS ---
DS: Admitting Diagnosis Discharge Date 07/01/21 Admitting Diagnosis hip fx DS: Discharge Diagnosis Discharge Diagnosis (1) Periprosthetic intertrochanteric fracture of femur: Qualifiers: Encounter type: initial encounter Qualified Code(s): M97.8XXA - Periprosthetic fracture around other internal prosthetic joint, initial encounter; Z96.649 - Presence of unspecified artificial hip joint Code(s): M97.8XXA - Periprosthetic fracture around other internal prosthetic joint, initial encounter; Z96.649 - Presence of unspecified artificial hip joint Status: Acute Assessment and Plan: Pt had a mechanical fall which resulted in a linear intertrochanteric nondisplaced fracture of the proximal left femur -Orthopedic surgery has seen the pt and does not recommend any sx. Pt doing well with PT and OT and is going home with home health PT and OT and will follow up with Dr. Erazo in his office for an xray in one week. -hx of chronic pain syndrome. Okay to use norco during acute pain but will need to hold tramadol. (2) Diabetes type 2, controlled: Qualifiers: Diabetes mellitus director long term care insulin use: without director long term care use Diabetes mellitus complication status: with unspecified complications Qualified Code(s): E11.8 - Type 2 diabetes mellitus with unspecified complications Code(s): E11.9 - Type 2 diabetes mellitus without complications Status: Acute Assessment and Plan: last glucose 175 -Continue home regimen (3) Chronic pain syndrome: Code(s): G89.4 - Chronic pain syndrome Status: Acute Assessment and Plan: as above (4) CAD (coronary artery disease): Qualifiers: Coronary Disease-Associated Artery/Lesion type: [place] artery [place] vs. transplanted heart: [place] heart Associated angina: without angina Qualified Code(s): I25.10 - Atherosclerotic heart disease of [place] coronary artery without angina pectoris Code(s): I25.10 - Atherosclerotic heart disease of [place] coronary artery without angina pectoris Status: Acute Assessment and Plan: Pt has a hx of CAD with systolic HF on last cath. He appears to be euvolemic with no cp, sob, or leg swelling. -Continue metoprolol, aspirin, and atorvastatin. DS: Summary Hospital Course Hospital Course: DOS 07/01/21 Patient is a 65-year-old male who presented emergency room 06/29/2021 for left hip pain after a mechanical fall while trying to lift up his dog. Vitals in the ER were temperature 96.4? F, pulse 82, his respiratory rate 18, blood pressure 129/65, pulse ox [address] Head CT showed no skull fracture or acute intracranial finding. Patient has chronic neck pain from his chronic pain but no new neck pain, stiffness or injury from his fall. Hip x-ray showed acute linear intertrochanteric nondisplaced fracture of the proximal left femur. Patient was admitted to the hospitalist service and was seen by Ortho. They recommended conservative treatment as this should heal on its own. The patient was seen by Physical therapy and did well. He lives on a 1 level home and has help at home. Day of discharge he felt comfortable going home with home health and continuing therapy there. His pain was controlled with the [place]. He is going to contact his pain specialists to let them know about the new injury and the [place]. Discussed that he should not take the tramadol with [place]. Day of discharge he was feeling well and ready to go. He was educated about the worrisome signs and symptoms come back to emergency room for and he was discharged in stable condition. Time Spent with Patient Time attestation: Total time spent providing and/or coordinating discharge services:34 min Exam Narrative: General: Well developed well nourished patient in NAD HEENT: normocephalic, no pain to the cervical spine Neck: supple Neuro: Alert and oriented x4 CV:RRR Resp:CTA Abd: Soft, non
--- NOTE | 2021-07-01 10:01 | PM.PNORT ---
Progress Note: A&P Assessment and Plan (1) Periprosthetic intertrochanteric fracture of femur: Qualifiers: Encounter type: initial encounter Qualified Code(s): M97.8XXA - Periprosthetic fracture around other internal prosthetic joint, initial encounter; Z96.649 - Presence of unspecified artificial hip joint Code(s): M97.8XXA - Periprosthetic fracture around other internal prosthetic joint, initial encounter; Z96.649 - Presence of unspecified artificial hip joint Status: Acute Assessment and Plan: 65 year old male has been progressing well with therapy and is looking forward to going home today. He would like to be seen in our office instead of going back to [place]. I told him this is fine. This fracture will be treated non surgically. We plan to see him for another Xray in 1 week and plan on weekly rechecks. He will be given an order for a platform device to use to increase stability. He will continue to see pain management at [facility] as needed. Subjective Subjective Date/Time Seen: 07/01/21 10:01 65 year old male admitted after fall and suffering a left hip intertrochanteric nondisplaced fracture. This will be monitored and addressed non surgically. He has been progressing well with therapy and is able to ambulate with walker and stand by assist. He is looking to go home today. He had previous hip surgery at [facility] but would like to follow up with our office in 1 week for recheck of this. Review of Systems Constitutional: Constitutional: Reports no additional constitutional complaints Eyes: Eyes: Reports no additional eye complaints ENT: Reports system reviewed and no additional complaints, except as documented Cardiovascular: Cardiovascular: Denies chest pain at rest Respiratory: Respiratory: Reports no additional respiratory complaints Gastrointestinal: Gastrointestinal: Reports no additional gastrointestinal complaints Musculoskeletal: Musculoskeletal: Reports as per HPI Integumentary/Breasts: Skin/Breast: Reports system reviewed and no additional complaints, except as docu Neurologic: Reports as per HPI Exam Const: General: alert and awake; No acute distress Nutritional Appearance: average body habitus Orientation/consciousness: patient oriented x3 Limitations: other limitations HENMT: Head: normal to inspection Ears: hearing grossly normal bilaterally Face and sinus: normal facial exam Mouth: Yes moist mucous membranes Teeth and gingiva: fair dentition Eyes: General: appearance normal, both eyes and all related structures Neck: Neck: normal visual inspection Chest: Chest palpation & inspection: deferred Resp: Effort & Inspection: normal respiratory effort and able to speak in complete sentences Cardio: Rate: regular rate Rhythm: regular rhythm Peripheral pulses: other ( lower extremity pulses palpable) GI: Inspection: non-distended Skin: General skin exam: normal color, no petechiae, no purpura and no pallor Trauma: abrasion ( small abrasion over left patella anteriorly), no lacerations and no punctures noted Wounds: no wounds noted Hair: other Neuro: General: patient oriented x3 and moves all extremities Cognition (Neuro): normal cognition Speech: normal speech Extrem: General: normal to inspection and other Other: Exam of the left lower extremity shows a bit of pain and proximal thigh with movement. Marked tenderness over the greater trochanter. Neurovascular status intact left lower extremity. Psych: Appearance: grossly normal Mental Status: mental status grossly normal Other: XR hip LT 2V w AP pelvis DATE: 06/29/2021 18:37 INDICATION: Fall. Left hip pain and limited range of motion. Unable to bear weight. TECHNIQUE: AP pelvis. AP and lateral views of left hip COMPARISON: 05/09/2015 AP pelvis and bilateral hips FINDINGS: There is a likely acute linear nondisplaced fracture of the intertrochanteric area of the left proximal femur. Status post left total hi
[2021-07-01 11:53] LABS: Glucose Point of Care 175 mg/dl (65-105)
== END 2021-07-01 13:03 | disposition home health service (06) ==
LOC: ANHED 20:20 → ANH2MED 20:53
PROVIDERS: General Practice; Physician Assistant; Admitting Provider Internal Medicine; Emergency Provider Emergency Medicine; Visit Provider Internal Medicine
DX: S72.145A Nondisplaced intertrochanteric fracture of left femur, initial encounter for closed fracture (principal); M97.02XA Periprosthetic fracture around internal prosthetic left hip joint, initial encounter; W19.XXXA Unspecified fall, initial encounter; M25.552 Pain in left hip; E11.9 Type 2 diabetes mellitus without complications; G89.29 Other chronic pain; I25.10 Atherosclerotic heart disease of native coronary artery without angina pectoris; I11.0 Hypertensive heart disease with heart failure; I50.20 Unspecified systolic (congestive) heart failure; Z96.642 Presence of left artificial hip joint; Z87.891 Personal history of nicotine dependence; Z79.4 Long term (current) use of insulin
CPT/HCPCS: 36415; 70450; 71045; 73502; 80048; 80053; 81001; 82948; 85025; 85027; 85055; 85610; 85730; 93005; 96374; 96376; 97116; 97162; 97165; 97530; 97535; 99285; A9270; G0378; J2270

== ENCOUNTER 2021-09-22 12:55 | Emergency (ER) | payer MEDICARE, OTHER, SELFPAY ==
--- NOTE | ~2021-09-22 | XR_ITS ---
EXAMINATION: XR ankle RT min 3V DATE: 09/22/2021 13:59 INDICATION: Right ankle injury. TECHNIQUE: 4 views of right ankle were obtained. COMPARISON: None. FINDINGS: There is an oblique fracture of distal fibula with medial aspect of the fracture line 3 mm proximal to the level of the tibial plafond. The distal fracture fragment demonstrates 3 mm posterola teral displacement. There is mild ankle joint osteoarthritis. There are enthesophytes at the posterio r and plantar aspects of calcaneal tuberosity. Ankle soft tissue swelling is noted. IMPRESSION: 1. Oblique fracture of distal fibula. 2. Mild ankle joint osteoarthritis. Reviewed, dictated and finalized at location A. WINDER
--- NOTE | ~2021-09-22 | XR_ITS ---
EXAMINATION: XR tibia fibula RT 2V DATE: 09/22/2021 13:59 INDICATION: Right lower leg injury. TECHNIQUE: 2 views of right tibia and fibula on 3 radiographs were obtained. COMPARISON: None. FINDINGS: There is an oblique fracture of distal fibula. The distal fracture fragment demonstrates 3 mm posterolateral displacement. There is mild right knee osteoarthritis. There are enthesophytes at t he posterior and plantar aspects of calcaneal tuberosity. No elbow joint effusion. IMPRESSION: 1. Oblique fracture of distal fibula. Reviewed, dictated and finalized at location A. FREIGHT FIRER
--- NOTE | ~2021-09-22 | XR_ITS ---
EXAMINATION: XR shoulder LT min 2V DATE: 09/22/2021 14:04 INDICATION: Left shoulder pain. Fall. TECHNIQUE: 4 views of left shoulder were obtained. COMPARISON: None. FINDINGS: Bone alignment is normal. No fracture. There is moderate osteoarthritis of glenohumeral zabrina nt and severe osteoarthritis of acromioclavicular joint. There is calcific tendinitis of the rotator cuff. IMPRESSION: 1. Polyarticular osteoarthritis. 2. Calcific tendinitis of the left rotator cuff. Reviewed, dictated and finalized at location A. R TAKE OFF TENDER
--- NOTE | ~2021-09-22 | XR_ITS ---
EXAMINATION: XR foot RT min 3V DATE: 09/22/2021 13:59 INDICATION: Right foot injury. TECHNIQUE: 4 views of right foot were obtained. COMPARISON: None. FINDINGS: Bone alignment is normal. There is an oblique fracture of distal fibula. There is mild oste oarthritis of some of the interphalangeal joints. There are enthesophytes at the posterior and planta r aspects of calcaneal tuberosity. IMPRESSION: 1. Oblique fracture of distal fibula. Reviewed, dictated and finalized at location A. SALES CONSULTANT
[2021-09-22 13:13] VITALS: BP 116/69; PULSE 80; RESP 14; TEMP 36.6; O2SAT 99
[2021-09-22] MEDS: HYDROcodone/acetaminophen (*CRX) 10-325 MG TABLET 1 TAB PO (14:07)
[2021-09-22 14:37] VITALS: TEMP 36.6
[2021-09-22 17:49] VITALS: BP 111/66; PULSE 74; RESP 16; O2SAT 97
--- NOTE | 2021-09-22 18:30 | ED.GENADULT ---
HPI - General Adult General Chief complaint: Extremity Injury, Lower Stated complaint: fall, leg injury Time Seen by Provider: 09/22/21 13:04 Source: patient Mode of arrival: wheelchair Limitations: no limitations History of Present Illness HPI narrative: Patient is a 65 yo male with CC of left shoulder pain from fall a week ago and right lower leg pain and bruising from a fall on Thursday. 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 He reports increasing pain to the ankle despite rest and ice. He reports increased bruising. She states he is seeing Dr Bailee Hernandez for femur fracture that occurred around . He has history of MRSA infection and other complications years ago to the right hip and thigh but denies any sign of infection at this time. Related Data Home Medications Medication Instructions Recorded Confirmed Glucagon Emergency Kit (human) 1 mg SUBCUT DIRECTED PRN 08/31/19 08/27/21 Jardiance 25 mg PO DAILY 08/31/19 08/27/21 amitriptyline 25 mg PO HS 08/31/19 08/27/21 [id number]-[id number]-fqct 1 cap PO Q6H PRN 08/31/19 08/27/21 [Fioricet] calcium carbonate 600 mg PO TID 08/31/19 08/27/21 cyanocobalamin (vitamin B-12) 500 mcg PO DAILY 08/31/19 08/27/21 duloxetine 30 mg PO DAILY 08/31/19 08/27/21 duloxetine 60 mg PO DAILY 08/31/19 08/27/21 hydroxyzine HCl 25 mg PO QID PRN 08/31/19 08/27/21 insulin lispro [Humalog Jacques See Protocol SUBCUT DAILY 08/31/19 08/27/21 KwikPen U-100] methocarbamol 500 mg PO TID 08/31/19 08/27/21 pregabalin 200 mg PO TID 08/31/19 08/27/21 tamsulosin 0.4 mg PO QPM 08/31/19 08/27/21 trazodone 100 mg PO HS 08/31/19 08/27/21 baclofen 10 mg PO TID 09/05/19 08/27/21 tramadol 100 mg PO Q6H 09/05/19 08/27/21 Ozempic 1 mg SUBCUT WEEKLY 06/29/21 08/27/21 acetaminophen 500 mg PO Q6H PRN 06/29/21 08/27/21 Allergies Allergy/AdvReac Type Severity Reaction Status Date / Time adhesive tape AdvReac Blister Verified 08/27/21 09:25 metformin AdvReac Nausea and Verified 08/27/21 09:25 Vomiting silicone AdvReac Blister Verified 08/27/21 09:25 zolpidem AdvReac Hallucinati Verified 08/27/21 09:25 ng Review of Systems Review of Systems: CONSTITUTIONAL: Denies fever, chills, or sweats. EYES: Denies visual changes, redness, or discharge. ENT: Denies rhinorrhea, congestion, sore throat, or otalgia. CARDIOVASCULAR: Denies chest pain, palpitations, or edema. RESPIRATORY: Denies cough or dyspnea. GASTROINTESTINAL: Denies abdominal pain, nausea, vomiting, or diarrhea. GENITOURINARY: Denies dysuria or hematuria. SKIN: Denies rash or itching. MUSCULOSKELETAL: Reports left shoulder and right lower leg pain denies back pain, joint pain, or myalgia. NEUROLOGIC: Denies headache, numbness, dizziness, or weakness. PSYCHIATRIC: Denies anxiety or depression. [facility] Past Medical History Medical History Anxiety CAD (coronary artery disease) Chronic pain syndrome Depression Diabetes type 2, controlled On oral medications and sliding scale insulin DVT (deep venous thrombosis) Following major trauma and associated surgeries in 2013 and 2014 on chronic anticoagulation with Eliquis as a ?preventative? measure Essential hypertension No longer on antihypertensives since weight loss surgery Fibromyalgia Hyperlipidemia Ischemic cardiomyopathy With mildly decreased global left ventricular systolic function with EF of 40-50% on cardiac catheterization 08/2019 Kidney stone Migraine Myocardial infarction Obstructive sleep apnea Resolved after gastric bypass in 2011 Osteoarthritis Peripheral neuropathy Periprosthetic intertrochanteric fracture of femur nondisplaced type A fracture Surgical History Surgical History Fracture closed, clavicle, shaft Right ORIF of clavicle fracture following trauma after falling off a hor
== END 2021-09-22 17:50 | disposition home or self-care (01) ==
PROVIDERS: Emergency Provider Emergency Medicine
DX: S82.831A Other fracture of upper and lower end of right fibula, initial encounter for closed fracture (principal); I25.10 Atherosclerotic heart disease of native coronary artery without angina pectoris; G89.4 Chronic pain syndrome; E78.5 Hyperlipidemia, unspecified; I25.5 Ischemic cardiomyopathy; E11.42 Type 2 diabetes mellitus with diabetic polyneuropathy; I25.2 Old myocardial infarction; M19.012 Primary osteoarthritis, left shoulder; M19.071 Primary osteoarthritis, right ankle and foot; M79.7 Fibromyalgia; F41.9 Anxiety disorder, unspecified; F32.A Depression, unspecified; Z79.899 Other long term (current) drug therapy; Z79.4 Long term (current) use of insulin; Z79.84 Long term (current) use of oral hypoglycemic drugs; Z86.718 Personal history of other venous thrombosis and embolism; Z98.84 Bariatric surgery status; Z87.442 Personal history of urinary calculi; Z96.642 Presence of left artificial hip joint; Z87.891 Personal history of nicotine dependence; M75.32 Calcific tendinitis of left shoulder; W18.39XA Other fall on same level, initial encounter
CPT/HCPCS: 29505; 29515; 73030; 73590; 73610; 73630; 99284; A9270